=== PATIENT | male | born 2000 | race Two or more races ===

== ENCOUNTER 2024-05-16 00:05 | Inpatient (IN) | payer OTHER ==
[2024-05-16] VITALS (8 sets, daily range): BP systolic 142–175; BP diastolic 93–117; TEMP 97.4–98.8; O2SAT 95–98
[~2024-05-16] VITALS: Ht 180.3 cm; Wt 110.2 kg
[2024-05-16] MEDS: IV NS 0.9% 1,000 ML IV PRN (05:51)
[2024-05-16] MEDS: MORPHINE SULFATE INJ 2 MG/ML DISP.SYRIN IV PRN (05:52)
[2024-05-16] MEDS ORDERED: Z GUARD REMEDY 4 OZ OINT TP PRN (06:00)
[2024-05-16] MEDS: HYDROMORPHONE 1 MG/1 ML DISP.SYRIN IV PRN (08:25)
[2024-05-16] MEDS ORDERED: MORPHINE SULFATE INJ 2 MG/ML DISP.SYRIN IV PRN (10:00)
[2024-05-16] MEDS: ONDANSETRON HCL/PF 4 MG/2 ML VIAL IVP PRN (11:03)
[2024-05-16 13:17] LABS: ALBUMIN 3.5 g/dL (3.4-5.0); BASOPHILS % (AUTO) 0.1 % (0.0-2.0); BILIRUBIN,DIRECT 0.2 mg/dL (0.0-0.2); BILIRUBIN,TOTAL 0.8 mg/dL (0.2-1.0); CALCIUM, SERUM 8.9 mg/dL (8.5-10.1); CREATININE 0.9 mg/dL (0.6-1.3); HEMATOCRIT 54 % (39-51); HEMOGLOBIN 17.9 g/dL (13.5-17.5); LYMPHOCYTES # (AUTO) 0.8 K/uL (0.8-4.8); MAGNESIUM 1.7 mg/dL (1.8-2.4); MEAN CORPUSCULAR HEMOGLOBIN 29 PG (26.0-33.0); MEAN CORPUSCULAR HGB CONC 33 g/dl (31.0-36.0); MEAN CORPUSCULAR VOLUME 87 fL (80-96); MONOCYTES # (AUTO) 1.1 K/uL (0.1-1.30); MONOCYTES % (AUTO) 6.6 % (2.0-12.0); NEUTROPHILS # (AUTO) 14.2 K/uL (1.8-8.9); NEUTROPHILS % (AUTO) 88.3 % (43.0-81.0); PHOSPHORUS 3.3 mg/dL (2.5-4.9); PLATELET COUNT (AUTO) 236 K/uL (150-450); POTASSIUM 3.9 mmol/L (3.5-5.1); RED BLOOD CELL COUNT(AUTO) 6.17 MIL/uL (4.5-6.0); RED CELL DISTRIBUTION WIDTH 14.7 % (11.5-15.0); TOTAL PROTEIN, SERUM 7.4 g/dL (6.4-8.2); WHITE BLOOD COUNT (AUTO) 16.1 K/uL (4.3-11.0)
[2024-05-16 13:31] LABS: THYROID STIMULATING HORMONE 0.9 uIU/mL (0.358-3.74)
[2024-05-16] MEDS ORDERED: LORAZEPAM 1 MG TABLET PO PRN (14:30)
[2024-05-16] MEDS: PANTOPRAZOLE 40 MG VIAL IV SCH (14:42)
[2024-05-16] MEDS: CHLORDIAZEPOXIDE HCL 25 MG CAPSULE PO SCH (14:42)
[2024-05-16] MEDS: IV LR 1000 ML 1,000 ML IV PRN (14:42)
[2024-05-17] VITALS: BP 162/106; TEMP 98.2; O2SAT 95
[2024-05-17 00:36] VITALS: BP 155/90; O2SAT 97
[2024-05-17 04:00] VITALS: BP 140/87; TEMP 98.8; O2SAT 94; O2SAT 95
[2024-05-17 06:29] LABS: BASOPHILS % (AUTO) 0.1 % (0.0-2.0); HEMATOCRIT 50 % (39-51); HEMOGLOBIN 16.5 g/dL (13.5-17.5); LYMPHOCYTES # (AUTO) 1.1 K/uL (0.8-4.8); LYMPHOCYTES % (AUTO) 6.7 % (20.0-44.0); MEAN CORPUSCULAR HEMOGLOBIN 29 PG (26.0-33.0); MEAN CORPUSCULAR HGB CONC 33 g/dl (31.0-36.0); MEAN CORPUSCULAR VOLUME 86 fL (80-96); MONOCYTES % (AUTO) 6.2 % (2.0-12.0); NEUTROPHILS # (AUTO) 14.1 K/uL (1.8-8.9); PLATELET COUNT (AUTO) 185 K/uL (150-450); RED BLOOD CELL COUNT(AUTO) 5.75 MIL/uL (4.5-6.0); RED CELL DISTRIBUTION WIDTH 14.5 % (11.5-15.0); WHITE BLOOD COUNT (AUTO) 16.2 K/uL (4.3-11.0)
[2024-05-17 06:48] LABS: BILIRUBIN,TOTAL 1.1 mg/dL (0.2-1.0); CALCIUM, SERUM 8.6 mg/dL (8.5-10.1); CREATININE 0.9 mg/dL (0.6-1.3); MAGNESIUM 1.3 mg/dL (1.8-2.4); POTASSIUM 3.8 mmol/L (3.5-5.1); TOTAL PROTEIN, SERUM 6.7 g/dL (6.4-8.2)
[2024-05-17] MEDS: PANTOPRAZOLE 40 MG TABLET.DR PO SCH (09:12)
[2024-05-17] MEDS: MAGNESIUM OXIDE 400 MG TABLET PO ONE ×2 (10:41→11:12)
[2024-05-17] MEDS: METRONIDAZOLE 500 MG TABLET PO SCH (13:00)
[2024-05-17] MEDS: CIPROFLOXACIN HCL 500 MG TABLET PO SCH (15:30)
[2024-05-17 15:56] VITALS: BP 162/100; TEMP 97.9; O2SAT 96
[2024-05-17 20:00] VITALS: BP 154/99; TEMP 98; O2SAT 93
[2024-05-18 06:41] LABS: EOSINOPHILS % (AUTO) 0.1 % (0.0-6.0); HEMATOCRIT 47 % (39-51); HEMOGLOBIN 15.8 g/dL (13.5-17.5); LYMPHOCYTES # (AUTO) 1.2 K/uL (0.8-4.8); LYMPHOCYTES % (AUTO) 9.1 % (20.0-44.0); MEAN CORPUSCULAR HEMOGLOBIN 30 PG (26.0-33.0); MEAN CORPUSCULAR HGB CONC 34 g/dl (31.0-36.0); MEAN CORPUSCULAR VOLUME 87 fL (80-96); MONOCYTES % (AUTO) 7.7 % (2.0-12.0); NEUTROPHILS # (AUTO) 11.1 K/uL (1.8-8.9); NEUTROPHILS % (AUTO) 83.1 % (43.0-81.0); PLATELET COUNT (AUTO) 152 K/uL (150-450); RED BLOOD CELL COUNT(AUTO) 5.34 MIL/uL (4.5-6.0); RED CELL DISTRIBUTION WIDTH 14.1 % (11.5-15.0); WHITE BLOOD COUNT (AUTO) 13.3 K/uL (4.3-11.0)
[2024-05-18 07:21] LABS: ALBUMIN 2.7 g/dL (3.4-5.0); BILIRUBIN,TOTAL 1.4 mg/dL (0.2-1.0); CREATININE 0.7 mg/dL (0.6-1.3); MAGNESIUM 1.7 mg/dL (1.8-2.4); POTASSIUM 3.8 mmol/L (3.5-5.1); TOTAL PROTEIN, SERUM 6.8 g/dL (6.4-8.2)
[2024-05-18] MEDS: MAGNESIUM OXIDE 400 MG TABLET PO ONE (11:21)
[2024-05-18] MEDS ORDERED: AMOX-430 PO (12:09)
== END 2024-05-18 14:30 | disposition home or self-care (01) | DRG 282 ==
LOC: TELE 05:24 → MED 05-17 12:03
PROVIDERS: ADMIT Nurse Practitioner Family; ATTEND Internal Medicine
DX: K85.20 Alcohol induced acute pancreatitis without necrosis or infection (principal); K70.10 Alcoholic hepatitis without ascites; D72.829 Elevated white blood cell count, unspecified; E78.5 Hyperlipidemia, unspecified; R74.01 Elevation of levels of liver transaminase levels; F10.139 Alcohol abuse with withdrawal, unspecified
CPT/HCPCS: 36415; 76705-TC; 80048-TC; 80053-TC; 80061-TC; 80076-TC; 82150-TC; 83690-TC; 83735-TC; 84100-TC; 84443-TC; 85025-TC; 87081-TC; 98960; A4223; G0378; J1170; J2270; J2405; J2470; J7030; J7120